=== PATIENT | female | born 1985 | race American Indian/Alaskan Native ===

== ENCOUNTER 2023-12-04 10:59 | Emergency (ER) | payer MEDICAID ==
[~2023-12-04] VITALS: Ht 149.9 cm; Wt 70.4 kg
[2023-12-04 12:25] VITALS: BP 122/74; PULSE 83; RESP 16; TEMP 98.1; O2SAT 99
[2023-12-04 12:56] LABS: Urine Bacteria None Seen /hpf (None Seen)
[2023-12-04 13:15] LABS: Urine Blood Negative /uL (Negative); Urine Clarity Clear (Clear); Urine Color Colorless (Yellow); Urine Protein, UAD Negative (Negative); Urine Specific Gravity 1.005 (1.001-1.035); Urine Urobilinogen Normal (Negative); Urine WBC <1 /hpf (0 - 5); Urine pH 6.5 (5.0-9.0)
[2023-12-04] MEDS ORDERED: PRED20TA2 PO (13:40)
[2023-12-04] MEDS ORDERED: AZIT-43 PO (13:40)
[2023-12-04] MEDS ORDERED: [UNRECOGNIZED DRUG - CODE] (13:40)
== END 2023-12-04 13:43 | disposition home or self-care (01) ==
LOC: ER 10:59
DX: R05.9 Cough, unspecified (principal); R09.81 Nasal congestion
CPT/HCPCS: 71046; 81001

== ENCOUNTER 2024-07-12 08:51 | Emergency (ER) | payer MEDICAID ==
[~2024-07-12] VITALS: Ht 149.9 cm; Wt 66.4 kg
[~2024-07-12 08:51] MED LIST: AZIT-43 PO; PRED20TA2 PO; [UNRECOGNIZED DRUG - CODE]
[2024-07-12 09:39] VITALS: BP 118/89; TEMP 97
--- NOTE | 2024-07-12 11:03 | ED.PDOC ---
History of Present Illness HPI Comments This is a 39-year-old year old female with a history of asthma comes in who has been sick for approximately 2 weeks. She has been using some [id number] meds and her nebulizer at home but symptoms have not improved she has had fevers chills coughing up green mucus soreness in her chest. And wheezing. Chief Complaint: Cough Time Seen by MD: 10:59 Primary Care Provider: [facility] Reviewed Notes: Nurses Notes, Medications, Allergies Allergies: Coded Allergies: NO KNOWN ALLERGIES (Unverified , 12/04/23) Home Meds Active Scripts Azithromycin (Azithromycin) 250 Mg Tab, 250 MG PO DAILY MDD 500 for 5 Days, #6 TAB 0 Refills 2 TABLETS ORALLY ON DAY ONE, THEN 1 TABLET ORALLY DAILY FOR 4 DAYS Prov:PRINCESS TAPIA 12/04/23 Azelastine HCl (Azelastine Hydrochloride) 0.15 % Spr, 0.15 % NA DAILY for 7 Days, #1 SPRAY Prov:PRINCESS TAPIA 12/04/23 Prednisone (Prednisone) 20 Mg Tab, 40 MG PO DAILY for 5 Days, #10 TAB Prov:PRINCESS TAPIA 12/04/23 Information Source: Patient Mode of Arrival: Ambulatory Past Medical History PAST MEDICAL HISTORY: Asthma 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 DUCT INSTALLER History Social History Smoker: Non-Smoker Alcohol: Denies ETOH Use Drugs: Denies Drug Use Constitutional: reports: chills, fatigue, fever, malaise EENTM: reports: nasal discharge, nose congestion Respiratory: reports: cough, shortness of breath, wheezing Physical Exam General Appearance: No Apparent Distress HEENT: PERRL/EOMI, Pharynx Normal, Sinuses, TMs Normal Neck: Non-Tender, Normal Inspection Respiratory: Expiration, Inspiration, Wheezing Cardiovascular: Regular Rate/Rhythm Breast Exam: Deferred Gastrointestinal: Normal Bowel Sounds, Soft Genitalia: Deferred Pelvic: Deferred Rectal: Deferred Extremities: Normal inspection, Normal range of motion Neurologic: Alert, No Sensory Deficits Cerebellar Function: Normal Reflexes: NOT DONE Skin: Dry, Warm Lymphatic: No Adenopathy Was a procedure done? Was a procedure done?: No Differential Dx Considerations may include: Acute asthma exacerbation versus pneumonia X-Ray, Labs, Meds, VS Vital Signs Date Time Temp Pulse Resp B/P (MAP) Pulse Ox O2 Delivery O2 Flow Rate FiO2 07/12/24 09:39 97.0 98 17 118/89 (99) 98 97.0 07/12/24 09:39 98 17 98 Room Air 07/12/24 09:07 17 98 Room Air* 0 21 07/12/24 09:07 97.0 98 17 118/89 (99) 98 Current Medications Medications (Trade) Dose Ordered Sig/Bettina Route Start Time Stop Time Status Last Admin Dexamethasone Sodium Phosphate (Decadron Injection) 10 mg ONCE ONCE IM 07/12/24 11:15 07/12/24 11:16 DC 07/12/24 11:09 Albuterol (Ventolin Medneb) 5 mg ONCE ONCE NEB 07/12/24 11:15 07/12/24 11:16 DC 07/12/24 11:45 X-Ray, Labs, Meds, VS Comment Patient seen and examined by me. Patient will be given a breathing treatment here a shot of Decadron and we will re-evaluate to see if her symptoms are better. Patient felt significantly better after the Decadron and a breathing treatment. I will send her home with some prednisone and antibiotics. Instructed to continue drinking lots of liquids and finish meds as directed. Supportive therapy with Tylenol and Motrin. Time of 1ST Reevaluation: 12:15 Reevaluation 1ST: Improved Patient Education/Counseling: Diagnosis, Treatment, Prognosis, Need For Follow Up Family Education/Counseling: No Family Present Departure 1 Departure Time of Disposition: 12:15 Impression: Primary Impression: Asthma attack Additional Impression: Upper respiratory infection Disposition: HOME / SELF CARE / HOMELESS Condition: Good Additional Instructions: Finish antibiotics as directed Start the oral prednisone tomorrow and take it until it is completely done Rest and drink lots of liquids Continue your inhaler as needed Follow-up with your regular doctor in 2 days e-Prescriptions Prednisone (Prednisone) 20 Mg Tab 40 MG PO DAILY@BREAKFAST for 4 Days, #8 MG Prov: EFRAIN JORGENSEN 07/12/24 Amoxicillin & Pot Clavulanate (AUGMENTIN TABLET) 875 Mg Tb 875 MG PO BID for 10 Days, #20 TAB Prov: EFRAIN JORGENSEN 07/12/24 Discharged With: Self Critical Care Note Critical Care Time?: No Stability Stability form required: No EFRAIN JORGENSEN Jul 12, 2024 11:03
[2024-07-12] MEDS: DexAMETHasone SOD PHOS 10MG/1ML VIAL INJ IM ONE (11:09)
[2024-07-12 11:45] VITALS: PULSE 85; RESP 18; O2SAT 96
[2024-07-12] MEDS: ALBUTEROL SULF 2.5 MG/0.5ML(0.5%) NEB SOLN NEB ONE (11:45)
[2024-07-12 11:51] VITALS: PULSE 86; RESP 16; O2SAT 100
[2024-07-12] MEDS ORDERED: AUG875T PO (12:17)
[2024-07-12] MEDS ORDERED: PRED20TA2 PO (12:18)
== END 2024-07-12 12:19 | disposition home or self-care (01) ==
LOC: ER 08:51
DX: J45.909 Unspecified asthma, uncomplicated (principal); J06.9 Acute upper respiratory infection, unspecified; Z79.899 Other long term (current) drug therapy; Z98.890 Other specified postprocedural states
CPT/HCPCS: 94640; 96372; 99283; J1100

== ENCOUNTER 2024-10-02 08:34 | Emergency (ER) | payer MEDICAID ==
[~2024-10-02] VITALS: Ht 149.9 cm; Wt 64.4 kg
[~2024-10-02 08:34] MED LIST changes: +AUG875T PO
[2024-10-02 09:05] VITALS: BP 106/62; PULSE 94; TEMP 98.5
--- NOTE | 2024-10-02 09:20 | ED.PDOC ---
SOB-HPI HPI Comments A 39 YEAR OLD FEMALE PRESENTS TO THE ED WITH COMPLAINT OF COUGH. PATIENT STATES SHE HAS BEEN EXPERIENCING A COUGH AND CONGESTION OFF AND ON FOR THE PAST 2 MONTHS. PATIENT REPORTS SHE CAME TO THIS ED FOR THIS COMPLAINT OVER 1 MONTH AGO WHERE SHE WAS PRESCRIBED STEROIDS AND AN ANTIBIOTIC, WHICH SHE STATES IMPROVED HER SYMPTOMS FOR A SHORT PERIOD OF TIME, BUT NOTES HIS SYMPTOMS RETURNED LATER. PATIENT STATES SHE HAS ALSO BEEN EXPERIENCING WHEEZING, BUT NOTES SHE HAS A HISTORY OF ASTHMA. PATIENT DENIES FEVER, CHILLS, SHORTNESS OF BREATH, CHEST PAIN, ABDOMINAL PAIN, NAUSEA, VOMITING, HEADACHE, OR OTHER COMPLAINTS. NO OTHER SYMPTOMS OR MODIFYING FACTORS AT THIS TIME. PATIENT IS ALERT, ORIENTED X 4, AND HAS STEADY GAIT. 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 Pertinent SHOE COBBLER History Family History Family History: Reviewed,noncontributory to illness Social History Smoker: Non-Smoker Alcohol: Denies ETOH Use Drugs: Denies Drug Use Lives In: Home Constitutional: denies: chills, diaphoresis, fatigue, fever, malaise, sweats, weakness, others EENTM: reports: nose congestion; denies: blurred vision, double vision, ear bleeding, ear discharge, ear drainage, ear pain, ear ringing, eye pain, eye redness, hearing loss, mouth pain, mouth swelling, nasal discharge, nose bleeding, nose pain, photophobia, tearing, throat pain, throat swelling, voice changes, others Respiratory: reports: cough, wheezing; denies: hemoptysis, orthopnea, SOB at rest, shortness of breath, SOB with excertion, stridor, others Cardiovascular: denies: chest pain, dizzy spells, diaphoresis, Dyspnea on exertion, edema, irregular heart beat, left arm pain, lightheadedness, palpitations, PND, syncope, others Gastrointestinal: denies: abdomen distended, abdominal pain, blood streaked bowels, constipated, diarrhea, dysphagia, difficulty swallowing, hematemesis, melena, nausea, poor appetite, poor fluid intake, rectal bleeding, rectal pain, vomiting, others Genitourinary: denies: abnormal vagina bleeding, burning, dyspareunia, dysuria, flank pain, frequency, hematuria, incontinence, pain, , vagina discharge, urgency, others Neurological: denies: dizziness, fainting, headache, left sided numbness, left sided weakness, numbness, paresthesia, pre-existing deficit, right sided numbness, right sided weakness, seizure, speech problems, tingling, tremors, weakness, others Musculoskeletal: denies: back pain, gout, joint pain, joint swelling, muscle pain, muscle stiffness, neck pain, others Integumetry: denies: bruises, change in color, change in hair/nails, dryness, laceration, lesions, lumps, rash, wounds, others Allergic/Immunocompromised: denies: Difficulty Healing, Frequent Infections, Hives, Itching, others Hematologic/Lymphatic: denies: anemia, blood clots, easy bleeding, easy bruising, swollen glands, others Endocrine: denies: excessive hunger, excessive sweating, excessive thirst, excessive urination, flushing, intolerance to cold, intolerance to heat, unexplained weight gain, unexplained weight loss, others Psychiatric: denies: anxiety, bipolar disorder, depression, hopeless, panic disorder, schizophrenia, sleepless, suicidal, others All Other Systems: Reviewed and Negative Physical Exam General Appearance: No Apparent Distress, Normal HEENT: Normal ENT Inspection, PERRL/EOMI, Pharynx Normal, TMs Normal Neck: Full Range of Motion, Non-Tender, Normal, Normal Inspection Respiratory: Chest Non-Tender, Expiration, Lungs Clear, No Accessory Muscle Use, No Respiratory Distress, Rhonchi, Wheezing Cardiovascular: No Edema, No JVD, No Murmur, No Gallop, Normal Peripheral Pulses, Regular Rate/Rhythm Breast Exam: Deferred Gastrointestinal: No Organomegaly, Non Tender, No Pulsatile Mass, Normal Bowel Sounds, Soft Genitalia: Deferred Pelvic: Deferred Rectal: Deferred Extremities: No calf tenderness, Normal capillary refill, Normal inspection, Normal range of motion, Non-tender, No pedal edema Musculoskeletal : Apperance: Normal Neurologic: Alert, loft worker II-XII nml as Tested, No Motor Deficits, Normal Affect, Normal Mood, No Sensory Deficits Cerebellar Function: Normal Reflexes: Normal Skin: Dry, Normal Color, Warm Peripheral Pulses: 2+ carotid (R), 2+ carotid (L) Lymphatic: No Adenopathy Was a procedure done? Was a procedure done?: No Differential Dx Differential Diagnosis: Asthma, Bronchitis, Pneumonia, Sinusitis, Allergic Rhinitis, Otitis Media, Pharyngitis, URI X-Ray, Labs, Meds, VS Vital Signs Date Time Temp Pulse Resp B/P (MAP) Pulse Ox O2 Delivery O2 Flow Rate FiO2 10/02/24 09:47 16 97 Room Air* 0 21 10/02/24 09:05 98.5 94 20 106/62 (77) 98 98.5 10/02/24 09:05 94 20 98 Room Air 10/02/24 08:52 20 98 Room Air* 0 21 10/02/24 08:52 98.5 94 20 106/62 (77) 98 EXAM: XY CHEST PORTABLE HISTORY: COUGH COMPARISON: Chest x-ray dated 12/04/2023. TECHNIQUE: Portable upright AP view of the chest was performed. FINDINGS: No pneumothorax, consolidative infiltrates, or pulmonary edema. There is mild central peribronchial thickening. The heart is not enlarged. There is slight upper thoracic levoscoliosis. IMPRESSION: Mild reactive airways disease. The lungs are otherwise clear. ATED BY: MARILEE FARRAR MD DICTATED DATE/TIME: 10/02/24917 SIGNED BY: MARILEE FARRAR MD SIGNED DATE/TIME: 10/02/24917 CC: X-Ray, Labs, Meds, VS Comment EXTERNAL MEDICAL RECORDS REVIEWED: [NONE] INDEPENDENT HISTORIANS: [NONE] SOCIAL DETERMINANTS OF HEALTH: [NONE] LABS ORDERED: NONE REVIEWED AND INTERPRETED RESULTS: NONE IMAGING ORDERED: XR CHEST TREATMENTS ORDERED: SOLU-MEDROL 125MG IM, DUONEB 3MG INHL PROCEDURES PERFORMED: NONE CRITICAL CARE TIME: NONE I HAVE DISCUSSED THE PATIENT WITH THE ATTENDING PHYSICIAN DR. NOEL AND HE AGREES WITH THE PATIENT'S PLAN OF CARE AND DISPOSITION. BASED ON HISTORY OF PRESENT ILLNESS, AND PHYSICAL EXAM, PATIENT WILL BE DISCHARGED HOME. SHARED DECISION MAKING: PATIENT INSTRUCTED TO FOLLOW UP WITH PRIMARY CARE HI OVIDER IN 1-2 DAYS FOR RE-EVALUATION OF SYMPTOMS. PATIENT VERBALIZES UNDERSTANDING TO RETURN TO ED FOR NEW OR WORSENING SYMPTOMS OR IF FOLLOW UP WITH PCP CANNOT BE OBTAINED. PATIENT FEELS COMFORTABLE GOING HOME AT THIS TIME. ALL QUESTIONS ADDRESSED AT TIME OF DISCHARGE. Images Reviewed?: Images reviewed and evaluated by me Time of 1ST Reevaluation: 10:00 Reevaluation 1ST: Improved Patient Education/Counseling: Diagnosis, Treatment, Need For Follow Up Family Education/Counseling: Diagnosis, Treatment, Need For Follow Up Medical Screening: No EMC Exist At This Time Departure 1 Departure Time of Disposition: 10:00 Impression: Primary Impression: Acute asthmatic bronchitis Disposition: 01 HOME / SELF CARE / HOMELESS Condition: Stable Additional Instructions: FOLLOW-UP WITH PCP IN 1 TO 2 DAYS. TAKE MEDICATIONS PRESCRIBED. RETURN TO ED FOR ANY NEW OR WORSENING SYMPTOMS. e-Prescriptions Azithromycin (ZITHROMAX TABLET) 250 Mg Tb 250 MG PO DAILY, #6 TAB Prov: ALANA VORA 10/02/24 Promethazine-Dm (Promethazine Dm 6.25-15 mg/5Ml) 1 Rachael Rachael 5 ML PO TID, #160 ML Prov: ALANA VORA 10/02/24 Methylprednisolone (Medrol Dosepak) 4 Mg Arnoldo 4 MG PO UD, #21 TAB UAD Prov: ALANA VORA 10/02/24 Discharged With: Self Critical Care Note Critical Care Time?: No Stability Stability form required: No Heart Score Heart Score: Heart Score Response (Comments) Value History N/A 0 EKG N/A 0 Age N/A 0 Risk Factors N/A 0 Troponin N/A 0 Total 0 I personally scribed for ALANA VORA ([email or web address]) on 10/02/24 at 09:20. Daniela ctronically submitted by Chucho Acuna ([email or web address]). I personally scribed for ALANA VORA ([email or web address]) on 10/02/24 at 09:27. Elect ronically submitted by Chucho Acuna ([email or web address]). I personally scribed for ALANA VORA ([email or web address]) on 10/02/24 at 09:31. Electro nically submitted by Chucho Acuna ([email or web address]). I personally scribed for ALANA VORA ([email or web address]) on 10/02/24 at 09:52. Marsha glasgow submitted by Chucho Acuna ([email or web address]). ALANA VORA Oct 02, 2024 09:20
[2024-10-02] MEDS: methylPREDNISolone SOD SUCC 125 MG/2 ML VL IM ONE (09:31)
[2024-10-02 09:47] VITALS: RESP 16; O2SAT 97
[2024-10-02] MEDS: IPRATROPIUM BROM 0.5 MG/2.5ML INH SOL NEB ONE (09:47)
[2024-10-02] MEDS: ALBUTEROL SULF 2.5 MG/0.5ML(0.5%) NEB SOLN NEB ONE (09:47)
[2024-10-02] MEDS ORDERED: AZIT-185 PO (09:52)
[2024-10-02] MEDS ORDERED: PROM1SOL4 PO (09:52)
[2024-10-02] MEDS ORDERED: METH4PAK PO (09:52)
== END 2024-10-02 09:56 | disposition home or self-care (01) ==
LOC: ER 08:34
DX: J45.909 Unspecified asthma, uncomplicated (principal); E07.9 Disorder of thyroid, unspecified; R05.9 Cough, unspecified; Z98.890 Other specified postprocedural states
CPT/HCPCS: 71045; 94640; 96372; 99283; J2919

== ENCOUNTER 2025-02-23 12:45 | Emergency (ER) | payer MEDICAID ==
[~2025-02-23] VITALS: Ht 149.9 cm; Wt 62.2 kg
[~2025-02-23 12:45] MED LIST changes: +AZIT-185 PO; +METH4PAK PO; +PROM1SOL4 PO
--- NOTE | 2025-02-23 13:20 | ED.PDOC ---
SOB-HPI HPI Comments 40 year old female with a past medical history of asthma, thyroid disease presents to the ED with a chief complaint of productive cough onset 3 days. Patient states she has been experiencing productive cough with green phlegm for the past 3 days, worsen last night. Patient was laying down, noticed worsening cough, was also experiencing shortness of breath, chest pain. Used breathing treatment and inhaler with minimal improvement of symptoms. Patient also notes LT leg pain, tried elevating with no relief of symptoms. No other symptoms or modifying factors present at this time. Hospitalizations: denies Denies fever chills night sweats regular cough Denies history of chronic steroid use or history of osteoporosis Denies any history of cancer Denies fevers chills night sweats nausea vomiting unintentional weight loss Denies IV drug use history of HIV/TB Denies abdominal "tearing" pain Denies syncope Denies urinary incontinence or urinary changes Denies numbness tingling of the groin or inner thigh Denies previous back procedure or surgery Chief Complaint: Cough Time Seen by MD: 13:00 Primary Care Provider: [facility] Reviewed notes: Medications, Allergies Information Source: Patient Mode of Arrival: Ambulatory Severity: Moderate Timing: Days Duration: Since onset Context: At Rest PE Risk Factors: None History of: Asthma Prehospital treatment: Breathing Tx Associated Signs and Symptoms: Cough, Chest Pain Quality: Pressure Radiation: No Radiation If cough with SOB: Productive, Green Past Medical History PAST MEDICAL HISTORY: Asthma, Thyroid 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 No nasal flaring no sternal retractions), No Accessory Muscle Use, Wheezing (mild expiratory, all 4 lobes) Cardiovascular: No Edema, No JVD, No Murmur, No Gallop, Normal Peripheral Pulses, Regular Rate/Rhythm Breast Exam: Deferred Gastrointestinal: No Organomegaly, Non Tender, No Pulsatile Mass, Normal Bowel Sounds, Soft Genitalia: Deferred Pelvic: Deferred Rectal: Deferred Extremities: No calf tenderness, Normal capillary refill, No pedal edema Musculoskeletal : Location: Left Extremity Location: Leg (positive LT straight leg raise test) Apperance: Normal Neurologic: Alert, trauma registrar II-XII nml as Tested, No Motor Deficits, Normal Affect, Normal Mood, No Sensory Deficits Cerebellar Function: Normal Reflexes: Normal Skin: Dry, Normal Color, Warm Lymphatic: No Adenopathy Was a procedure done? Was a procedure done?: No Differential Dx Differential Diagnosis: Asthma, Bronchitis, Pharyngitis, URI X-Ray, Labs, Meds, VS Vital Signs Date Time Temp Pulse Resp B/P (MAP) Pulse Ox O2 Delivery O2 Flow Rate FiO2 02/23/25 15:04 90 16 98 Room Air 02/23/25 15:04 98.7 90 16 117/85 (96) 96 98.7 02/23/25 13:51 22 97 Room Air* 0 21 02/23/25 13:08 99.0 109 17 146/96 (113) 97 99.0 Lab Test 02/23/25 13:39 02/23/25 13:19 Range/Units Urine Color Light-yellow Yellow Urine Clarity Clear Clear Urine pH 5.5 5.0-9.0 Urine Specific [place] 1.005 1.001-1.035 Urine Protein Negative Negative Urine Ketones Negative Negative Urine Blood Negative Negative /uL Urine Nitrite Negative Negative Urine Bilirubin Negative Negative Urine Urobilinogen Normal Negative mg/dL Urine Leukocyte Esterase Negative Negative /uL Urine RBC None seen 0 - 4 /hpf Urine Microscopic WBC < 1 0-5 /HPF Urine Squamous Epithelial Cells Few <5 /hpf Urine Bacteria None seen None Seen /hpf Urine Glucose Normal Normal mg/dL White Blood Count 5.4 4.4-10.8 10^3/uL Red Blood Count 4.00 4.0-5.20 10^6/uL Hemoglobin 12.4 12.2-16.2 g/dL Hematocrit 36.9 36.0-46.0 % Mean Corpuscular Volume 92.2 80.0-100.0 fL Mean Corpuscular Hemoglobin 31.0 28.0-32.0 pg Mean Corpuscular Hemoglobin Concent 33.6 32.0-36.0 g/dL Red Cell Distribution Width 14.0 11.8-14.3 % Platelet Count 255 140-450 10^3/uL Mean Platelet Volume 8.1 6.9-10.8 fL Neutrophils (%) (Auto) 38.3 37.0-80.0 % Lymphocytes (%) (Auto) 39.6 10.0-50.0 % Monocytes (%) (Auto) 7.6 0.0-12.0 % Eosinophils (%) (Auto) 13.6 H 0.0-7.0 % Basophils (%) (Auto) 0.9 0.0-2.0 % Neutrophils # (Auto) 2.1 1.6-8.6 10 ^3/uL Lymphocytes # (Auto) 2.1 0.4-5.4 10 ^3/uL Monocytes # (Auto) 0.4 0-1.3 10 ^3/uL Eosinophils # (Auto) 0.7 0-0.8 10 ^3/uL Basophils # (Auto) 0.1 0-0.2 10 ^3/uL Nucleated Red Blood Cells 0.1 % Sodium Level 143 136-145 mmol/L Potassium Level 3.6 3.5-5.1 mmol/L Chloride Level 107 98-107 mmol/L Carbon Dioxide Level 28 20-31 mmol/L Anion Gap 8 5-15 Blood Urea Nitrogen 7 L 9-23 mg/dL Creatinine 0.78 0.550-1.02 mg/dL Glomerular Filtration Rate Calc 98 >90 mL/min BUN/Creatinine Ratio 9.0 L 10.0-20.0 Serum Glucose 82 74-106 mg/dL Calcium Level 9.3 8.7-10.4 mg/dL Total Bilirubin 0.2 0.2-1.0 mg/dL Aspartate Amino Transferase (AST) 18 13-40 U/L Alanine Aminotransferase (ALT) 19 7-40 U/L Alkaline Phosphatase 61 46-116 U/L B-Type Natriuretic Peptide 67.79 0-100 pg/mL Total Protein 6.5 5.7-8.2 g/dL Albumin 4.4 3.2-4.8 g/dL Current Medications Medications (Trade) Dose Ordered Sig/Bettina Route Start Time Stop Time Status Last Admin Albuterol (Ventolin Medneb) 5 mg ONCE ONCE NEB 02/23/25 13:15 02/23/25 13:16 DC 02/23/25 13:51 Ipratropium [place] (Atrovent Medneb) 0.5 mg ONCE ONCE NEB 02/23/25 13:15 02/23/25 13:16 DC 02/23/25 13:50 Dexamethasone Sodium Phosphate (Decadron Injection) 16 mg ONCE ONCE IM 02/23/25 13:15 02/23/25 13:16 DC 02/23/25 14:51 Ketorolac Tromethamine (Toradol Injection) 30 mg ONCE ONCE IM 02/23/25 13:15 02/23/25 13:16 DC 02/23/25 14:51 [place] [id number] Ph: [phone] DIAGNOSTIC IMAGING Diagnostic Imaging Report : [id number] Signed PATIENT: DARLING CAVAZOS ACCT: [id number] UNIT: [id number] : 1985 LOC: ER ROOM / BED: / AGE / SEX: 40 / F ADM STATUS: REG ER SERVICE 1304 ORDERING PHYSICIAN: MIKKI SÁNCHEZ MAC DEVELOPER PROCEDURE(s): CXR2 - CHEST TWO VIEWS ROUTINE REASON: R/O PNA ORDER NUMBER(s): [id number], ACCESSION NUMBER(s): [id number] XY CHEST TWO VIEWS ROUTINE CLINICAL HISTORY: R/O PNA COMPARISON: XY CHEST TWO VIEWS ROUTINE on DOS: 12/04/23 TECHNIQUE: Frontal and lateral view of the chest was obtained FINDINGS: Lines and Tubes: None Lungs: No focal consolidation. Metallic densities overlying the chest wall which are most likely external to the patient and part of coiling Pleura: No effusion. No pneumothorax. Cardiomediastinal contours: Unremarkable Bones: No acute osseous abnormality. IMPRESSION: No acute cardiopulmonary disease. No Pneumonia. ATED BY: KIA MILLER DO DICTATED DATE/TIME: 02/23/251333 SIGNED BY: KIA MILLER DO SIGNED DATE/TIME: 02/23/251333 CC: X-Ray, Labs, Meds, VS Comment 40 year old female with a past medical history of asthma, thyroid disease presents to the ED with a chief complaint of productive cough onset 3 days. Patient arrives alert and oriented, ABC's intact, afebrile, vital signs stable, saturating well in room air Peripheral IV insertion+ labs were ordered. CBC was ordered to exclude anemia, blood loss, or infection. CMP was ordered to exclude electrolyte abnormalities, renal failure, dehydration, hyperglycemia and/or liver enzyme abnormalities. BNP was ordered to rule out myocardial infarction, or congestive heart failure. Urinalysis was ordered to rule out UTI or hematuria. Diagnostic imaging ordered by me and results interpreted by radiology : Chest 2 views: IMPRESSION: No acute cardiopulmonary disease. No Pneumonia. Patient presents with cough and expiratory wheezing Unclear cause of the asthma exacerbation. Differentials considered but not limited to: PNA, bronchiolitis, Foreign body airway obstruction, GERD. I also considered pulmonary embolism, CHF, COPD, however, this is less likely as the patients pulse oximetry is with normal limits and ambulating without difficulty. Chest x-ray was obtained, and interpreted independently by myself as not showing focal consolidations or lobar pneumonia. Discussed viral etiologies with the patient however viral testing was not indicated as it does not pattern changer and the patient was overall well- appearing. While in the ED, the patient was treated with Albuterol and Atrovent, Dexamethasone On reevaluation symptoms improved with treatment in the ED. Vital signs and exam reassuring. Lungs clear no wheezing. No labored breathing. No signs of respiratory distress. Advised to continue with the inhaler as needed. Strict return precautions were discussed. Follow up with PCP 2-3 days. Additional MDM Review of External, Non-ED records: External records reviewed. Discussion with independent historian (EMS, family) history obtained from the patient/parents (if applicable) at bedside Chronic conditions affecting care: asthma, thyroid Social determinants of health affecting care: None Consideration of admission (observation or admission): I considered escalation of care to admission for this patient, however given the reassuring workup, the patient is safe for outpatient management. Time of 1ST Reevaluation: 13:30 Reevaluation 1ST: Improved Patient Education/Counseling: Diagnosis, Treatment Family Education/Counseling: No Family Present SEPSIS Sepsis Screen Physician Orders Chest Two Views Routine (02/23/25 13:04) Vital Signs Date Time Temp Pulse Resp B/P (MAP) Pulse Ox O2 Delivery O2 Flow Rate FiO2 02/23/25 15:04 90 16 98 Room Air 02/23/25 15:04 98.7 90 16 117/85 (96) 96 98.7 02/23/25 13:51 22 97 Room Air* 0 21 02/23/25 13:08 99.0 109 17 146/96 (113) 97 99.0 Laboratory Tests Test 02/23/25 13:19 White Blood Count 5.4 10^3/uL (4.4-10.8) Departure 1 Departure Time of Disposition: 14:39 Impression: Primary Impression: Asthma attack Qualified Codes: J45.21 - Mild intermittent asthma with (acute) exacerbation Additional Impression: Lumbar radiculopathy Disposition: HOME / SELF CARE / HOMELESS Condition: Fair e-Prescriptions Ibuprofen Micronized (Ibuprofen) 600 Mg Tab 600 MG PO TIDWMEALS for 10 Days, #30 TAB 0 Refills Prov: MIKKI SÁNCHEZ MAC DEVELOPER 02/23/25 Discharged With: Self Critical Care Note Critical Care Time?: No Stability Stability form required: No Heart Score Heart Score: Heart Score Response (Comments) Value History N/A 0 EKG N/A 0 Age N/A 0 Risk Factors N/A 0 Troponin N/A 0 Total 0 I personally scribed for MIKKI SÁNCHEZ MAC DEVELOPER ([email or web address]) on 02/23/25 at 13:20. Electronically submitted by Nila Lafleur ([email or web address]). I personally scribed for MIKKI SÁNCHEZ MAC DEVELOPER ([place]AH[place]) on 02/23/25 at 15:36. Electronically submitted by Nila Lafleur ([email or web address]). I personally scribed for MIKKI SÁNCHEZ MAC DEVELOPER (LEAHOMA) on 02/23/25 at 15:37. Electronically submitted by Nila Lafleur ([email or web address]). MIKKI SÁNCHEZ MAC DEVELOPER Feb 23, 2025 13:20
[2025-02-23 13:35] LABS: Hematocrit 36.9 % (36.0-46.0); Hemoglobin 12.4 g/dL (12.2-16.2); Mean Corpuscular Hemoglobin 31.0 pg (28.0-32.0); Mean Corpuscular Volume 92.2 fL (80.0-100.0); Nucleated Red Blood Cells % 0.1 %
--- NOTE | 2025-02-23 13:36 | DVH ---
XY CHEST TWO VIEWS ROUTINE CLINICAL HISTORY: R/O PNA COMPARISON: XY CHEST TWO VIEWS ROUTINE on DOS: 12/04/23 TECHNIQUE: Frontal and lateral view of the chest was obtained FINDINGS: Lines and Tubes: None Lungs: No focal consolidation. Metallic densities overlying the chest wall which are most likely exte rnal to the patient and part of coiling Pleura: No effusion. No pneumothorax. Cardiomediastinal contours: Unremarkable Bones: No acute osseous abnormality. IMPRESSION: No acute cardiopulmonary disease. No Pneumonia.
[2025-02-23] MEDS: IPRATROPIUM BROM 0.5 MG/2.5ML INH SOL NEB ONE (13:50)
[2025-02-23 13:51] LABS: Alanine Aminotransferase 19 U/L (7-40); Albumin 4.4 g/dL (3.2-4.8); Alkaline Phosphatase 61 U/L (46-116); Anion Gap 8 (5-15); BUN/Creatinine Ratio 9.0 (10.0-20.0); Calcium 9.3 mg/dL (8.7-10.4); Carbon Dioxide 28 mmol/L (20-31); Chloride 107 mmol/L (98-107); Glucose 82 mg/dL (74-106); Potassium 3.6 mmol/L (3.5-5.1); Sodium 143 mmol/L (136-145); Total Protein 6.5 g/dL (5.7-8.2)
[2025-02-23] MEDS: ALBUTEROL SULF 2.5 MG/0.5ML(0.5%) NEB SOLN NEB ONE (13:51)
[2025-02-23 13:52] LABS: Bilirubin, Total 0.2 mg/dL (0.2-1.0); Blood Urea Nitrogen 7 mg/dL (9-23)
[2025-02-23 14:00] LABS: Urine Protein, UAD Negative (Negative)
[2025-02-23] MEDS ORDERED: IBUP1TAB5 PO (14:40)
[2025-02-23] MEDS: KETOROLAC TROMETH 30 MG/ML 1ML VIAL IM ONE (14:51)
[2025-02-23 15:04] VITALS: BP 117/85; PULSE 90; RESP 16; TEMP 98.7; O2SAT 98
== END 2025-02-23 15:06 | disposition home or self-care (01) ==
LOC: ER 12:45
DX: J45.909 Unspecified asthma, uncomplicated (principal); M54.16 Radiculopathy, lumbar region; Z98.890 Other specified postprocedural states
CPT/HCPCS: 36415; 71046; 80053; 81001; 83880; 85025; 94640; 96372; 99284; J1100; J1885

== ENCOUNTER 2025-04-24 17:41 | Emergency (ER) | payer MEDICAID ==
[~2025-04-24] VITALS: Ht 149.9 cm; Wt 63.3 kg
[~2025-04-24 17:41] MED LIST changes: +IBUP1TAB5 PO
--- NOTE | 2025-04-24 18:42 | ED.PDOC ---
Back pain HPI HPI Comments 40-YEAR-OLD FEMALE PRESENTS IN THE ED WITH CC OF LEFT FOOT PAIN X 5 DAYS. PATIENT DOES NOT RECALL ANY KNOWN INJURY. PAIN IS SHARP PRESSURE TYPE 6/10 ON PAIN SCALE NONRADIATING TOP OF FOOT INTO ANKLE. HAS TRIED [id number] MEDICATIONS WITH LITTLE RELIEF. DENIES WEAKNESS NUMBNESS OR KNOWN INJURY. Chief Complaint: Lower Extremity Time Seen by MD: 18:18 Primary Care Provider: [facility] Reviewed Notes: Nurses Notes, Medications, Allergies Allergies: Coded Allergies: NO KNOWN ALLERGIES (Unverified , 12/04/23) Home Meds Active Scripts Tizanidine Hydrochloride (Tizanidine Hcl) 4 Mg Tab, 4 MG PO BID for 7 Days, #14 TAB Prov:CRISTÓBAL LIGHT PLASTIC TOP ASSEMBLER 04/24/25 Methylprednisolone (Medrol Dosepak) 4 Mg Arnoldo, 4 MG PO UD for 6 Days, #21 TAB UAD Prov:CRISTÓBAL LIGHT PLASTIC TOP ASSEMBLER 04/24/25 Ibuprofen Micronized (Ibuprofen) 600 Mg Tab, 600 MG PO TIDWMEALS for 10 Days, #30 TAB 0 Refills Prov:MIKKI SÁNCHEZ HAND CELL TUBER 02/23/25 Azithromycin (ZITHROMAX TABLET) 250 Mg Tb, 250 MG PO DAILY, #6 TAB Prov:ALANA VORA 10/02/24 Promethazine-Dm (Promethazine Dm 6.25-15 mg/5Ml) 1 Rachael Rachael, 5 ML PO TID, #160 ML Prov:ALANA VORA PA 10/02/24 Methylprednisolone (Medrol Dosepak) 4 Mg Arnoldo, 4 MG PO UD, #21 TAB UAD Prov:ALANA VORA 10/02/24 Prednisone (Prednisone) 20 Mg Tab, 40 MG PO DAILY@BREAKFAST for 4 Days, #8 MG Prov:EFRAIN JORGENSEN PLASTIC TOP ASSEMBLER 07/12/24 Amoxicillin & Pot Clavulanate (AUGMENTIN TABLET) 875 Mg Tb, 875 MG PO BID for 10 Days, #20 TAB Prov:EFRAIN JORGENSEN PLASTIC TOP ASSEMBLER 07/12/24 Azithromycin (Azithromycin) 250 Mg Tab, 250 MG PO DAILY MDD 500 for 5 Days, #6 T AB 0 Refills 2 TABLETS ORALLY ON DAY ONE, THEN 1 TABLET ORALLY DAILY FOR 4 DAYS Prov:PRINCESS TAPIA PLASTIC TOP ASSEMBLER 12/04/23 Azelastine HCl (Azelastine Hydrochloride) 0.15 % Spr, 0.15 % NA DAILY for 7 Days, #1 SPRAY Prov:PRINCESS TAPIA 12/04/23 Prednisone (Prednisone) 20 Mg Tab, 40 MG PO DAILY for 5 Days, #10 TAB Prov:PRINCESS TAPIA 12/04/23 Information Source: Patient Mode of Arrival: Ambulatory Past Medical History PAST MEDICAL HISTORY: Asthma, Thyroid Surgical History: SENIOR ADMINISTRATIVE ASSISTANT History: No Pertinent SENIOR ADMINISTRATIVE ASSISTANT History Family History Family History: Reviewed,noncontributory to illness Social History Smoker: Non-Smoker Alcohol: Denies ETOH Use Drugs: Denies Drug Use Lives In: Home All Other Systems: Reviewed and Negative (SEE HPI) Physical Exam General Appearance: No Apparent Distress, Normal HEENT: Pharynx Normal Neck: Full Range of Motion, Non-Tender Respiratory: Lungs Clear, No Respiratory Distress, Normal Breath Sounds Cardiovascular: No Murmur, Normal Peripheral Pulses, Regular Rate/Rhythm Breast Exam: Deferred Gastrointestinal: Non Tender, Soft Genitalia: Deferred Pelvic: Deferred Rectal: Deferred Extremities: No calf tenderness, Normal capillary refill, Normal range of motion, No pedal edema Musculoskeletal : Location: Left Extremity Location: Foot (Tenderness palpated Robitussin aspect and plantar aspect strength sensory motion intact cap refill less than 3 seconds) Apperance: Normal Neurologic: Alert, No Motor Deficits, Normal Affect, Normal Mood, No Sensory Deficits Cerebellar Function: Normal Reflexes: Normal, L Ankle Skin: Dry, Normal Color, Warm Lymphatic: No Adenopathy Was a procedure done? Was a procedure done?: No Back Pain Differential Dx Differential Diagnosis: Fracture, Musculoskeletal Pain, Urinary Obstruction X-Ray, Labs, Meds, VS Vital Signs Date Time Temp Pulse Resp B/P (MAP) Pulse Ox O2 Delivery O2 Flow Rate FiO2 04/24/25 19:31 104 19 97 Room Air 04/24/25 19:31 97.9 104 19 140/97 (111) 97 97.9 04/24/25 17:42 99.0 105 18 126/60 95 99.0 Current Medications Medications (Trade) Dose Ordered Sig/Bettina Route Start Time Stop Time Status Last Admin Ketorolac Tromethamine (Toradol Injection) 60 mg ONCE ONCE IM 04/24/25 18:30 04/24/25 19:17 DC 04/24/25 19:16 Acetaminophen/ Hydrocodone Bitart ([place] 5/325MG Tab) 1 tab ONCE ONCE PO 04/24/25 19:15 04/24/25 19:17 DC 04/24/25 19:30 Ibuprofen (Motrin Tablet) 600 mg ONCE ONCE PO 04/24/25 19:15 04/24/25 19:17 DC 04/24/25 19:30 X-Ray, Labs, Meds, VS Comment Left foot x-ray shows no acute fractures, dislocations or osseous lesion. Patient given [place] and ibuprofen for the pain, reports improvement request discharge at this time. Medrol Dosepak and muscle relaxer, advised take medications as prescribed side effects discussed. Follow up with the PCP in 2-3 days if no improvement consider further imaging such as MRI. Return precautions patient indicates understanding agrees with discharge plan of care. Time of 1ST Reevaluation: 18:35 Reevaluation 1ST: Unchanged Time of 2ND Reevaluation: 19:35 Reevaluation 2ND: Improved Patient Education/Counseling: Diagnosis, Treatment, Prognosis, Need For Follow Up Family Education/Counseling: No Family Present SEPSIS Sepsis Screen Date sepsis recognized/suspect: Apr 24, 2025 Time Sepsis recognized/suspect: 1743 Recent Procedure: No On Antibiotic Therapy: No Respiratory Rate >20: No Heart Rate >90: No Temp<36 C (96.8 F) or >38.3 C: No SBP <90 or MAP <65 mmHG: No New Acute Mental Status Change: No Is the patient on CPAP, BIPAP,: No Physician Orders L Foot 3 View Xray (04/24/25 18:23) Vital Signs Date Time Temp Pulse Resp B/P (MAP) Pulse Ox O2 Delivery O2 Flow Rate FiO2 04/24/25 19:31 104 19 97 Room Air 04/24/25 19:31 97.9 104 19 140/97 (111) 97 97.9 04/24/25 17:42 99.0 105 18 126/60 95 99.0 Medications Medications Dose Ordered Sig/Bettina Route Start Time Stop Time Status Last Admin Dose Admin Acetaminophen/ Hydrocodone Bitart 1 tab ONCE ONCE PO 04/24/25 19:15 04/24/25 19:17 DC 04/24/25 19:30 Ibuprofen 600 mg ONCE ONCE PO 04/24/25 19:15 04/24/25 19:17 DC 04/24/25 19:30 Ketorolac Tromethamine 60 mg ONCE ONCE IM 04/24/25 18:30 04/24/25 19:17 DC 04/24/25 19:16 Departure 1 Departure Time of Disposition: 19:35 Impression: Primary Impression: Fasciitis Disposition: 01 HOME / SELF CARE / HOMELESS Condition: Stable e-Prescriptions Tizanidine Hydrochloride (Tizanidine Hcl) 4 Mg Tab 4 MG PO BID for 7 Days, #14 TAB Prov: CRISTÓBAL LIGHT 04/24/25 Methylprednisolone (Medrol Dosepak) 4 Mg Arnoldo 4 MG PO UD for 6 Days, #21 TAB UAD Prov: CRISTÓBAL LIGHT 04/24/25 Discharged With: Self Critical Care Note Critical Care Time?: No Stability Stability form required: CRISTÓBAL Harry Apr 24, 2025 18:42
[2025-04-24] MEDS: KETOROLAC TROMETH 60MG/2ML VIAL IM ONE (19:16)
--- NOTE | 2025-04-24 19:16 | DVH ---
CLINICAL INDICATION: pain and swelling TECHNIQUE: XY L FOOT 3 VIEW XRAY Comparison: None FINDINGS: No evidence of acute fracture or dislocation. A pin is noted at the 1st metatarsal head. Joint spaces are normal. Soft tissues appear unremarkable. No evidence of ankle joint effusion. Small enthesophyt e noted at Achilles tendon insertion. IMPRESSION: No acute abnormality demonstrated.
[2025-04-24] MEDS: HYDROcodone-ACET 5/325MG TAB PO ONE (19:30)
[2025-04-24] MEDS: IBUPROFEN 600 MG TAB PO ONE (19:30)
[2025-04-24] MEDS ORDERED: TIZA-142 PO (19:30)
[2025-04-24] MEDS ORDERED: METH4PAK PO (19:30)
[2025-04-24 19:31] VITALS: BP 140/97; PULSE 104; RESP 19; TEMP 97.9; O2SAT 97
== END 2025-04-24 19:46 | disposition home or self-care (01) ==
LOC: ER 17:41
DX: M72.9 Fibroblastic disorder, unspecified (principal); J45.909 Unspecified asthma, uncomplicated; Z79.899 Other long term (current) drug therapy; Z98.890 Other specified postprocedural states; Z79.52 Long term (current) use of systemic steroids
CPT/HCPCS: 73630; 96372; 99283; J1885

== ENCOUNTER 2025-05-29 22:01 | Inpatient (IN) | payer MEDICAID ==
[~2025-05-29] VITALS: Ht 149.9 cm; Wt 62.1 kg
--- NOTE | 2025-05-29 23:23 | ED.PDOC ---
History of Present Illness HPI Comments 40 y/o F, with a history of asthma and thyroid disease, presents with c/c of chest pain, shortness of breath, and white phlegm production. Endorsement of 3- 4x days with constant symptoms following initial, unprovoked and atraumatic onset. No reported modifiers. No stated recent sick contact, travel, stressors, strenuous activities, or pertinent cardiac history. Denial of any nausea, vomiting, palpitations, fever, cough, or further associated symptoms. Chief Complaint: Chest Pain Time Seen by MD: 23:10 Primary Care Provider: [facility] Reviewed Notes: Nurses Notes, Medications, Allergies Allergies: Coded Allergies: NO KNOWN ALLERGIES (Unverified , 12/04/23) Home Meds Active Scripts Ibuprofen Micronized (Ibuprofen) 600 Mg Tab, 600 MG PO TIDWMEALS for 10 Days, #30 TAB 0 Refills Prov:MIKKI SÁNCHEZ LEATHER SHAVER 02/23/25 Azithromycin (ZITHROMAX TABLET) 250 Mg Tb, 250 MG PO DAILY, #6 TAB Prov:ALANA VORA 10/02/24 Promethazine-Dm (Promethazine Dm 6.25-15 mg/5Ml) 1 Rachael Rachael, 5 ML PO TID, #160 ML Prov:ALANA VORA 10/02/24 Methylprednisolone (Medrol Dosepak) 4 Mg Arnoldo, 4 MG PO UD, #21 TAB UAD Prov:ALANA VORA 10/02/24 Prednisone (Prednisone) 20 Mg Tab, 40 MG PO DAILY@BREAKFAST for 4 Days, #8 MG Prov:EFRAIN JORGENSEN [facility] 07/12/24 Amoxicillin & Pot Clavulanate (AUGMENTIN TABLET) 875 Mg Tb, 875 MG PO BID for 10 Days, #20 TAB Prov:EFRAIN JORGENSEN [facility] 07/12/24 Azithromycin (Azithromycin) 250 Mg Tab, 250 MG PO DAILY MDD 500 for 5 Days, #6 TAB 0 Refills 2 TABLETS ORALLY ON DAY ONE, THEN 1 TABLET ORALLY DAILY FOR 4 DAYS Prov:PRINCESS TAPIA [facility] 12/04/23 Azelastine HCl (Azelastine Hydrochloride) 0.15 % Spr, 0.15 % NA DAILY for 7 Days, #1 SPRAY Prov:PRINCESS TAPIA [facility] 12/04/23 Prednisone (Prednisone) 20 Mg Tab, 40 MG PO DAILY for 5 Days, #10 TAB Prov:PRINCESS TAPIA SCHEME TECHNICIAN 12/04/23 Information Source: Patient Mode of Arrival: Ambulatory Severity: Moderate Timing: Days Duration: Since onset Prehospital treatment: None Past Medical History PAST MEDICAL HISTORY: Asthma, Thyroid Surgical History: REGIONAL SALES LEADER History: No Pertinent REGIONAL SALES LEADER History Family History Family History: Reviewed,noncontributory to illness Social History Smoker: Non-Smoker Alcohol: Denies ETOH Use Drugs: Denies Drug Use Lives In: Home All Other Systems: Reviewed and Negative (Comprehensive systems review obtained and negative except for what is stated in the HPI.) Physical Exam General Appearance: Moderate Distress HEENT: Normal ENT Inspection, Pharynx Normal, TMs Normal Neck: Full Range of Motion, Non-Tender, Normal, Normal Inspection Respiratory: Other (Coarse breath sounds) Cardiovascular: No Edema, No JVD, No Murmur, No Gallop, Normal Peripheral Pulses, Regular Rate/Rhythm Breast Exam: Deferred Gastrointestinal: No Organomegaly, Non Tender, No Pulsatile Mass, Normal Bowel Sounds, Soft Genitalia: Deferred Pelvic: Deferred Rectal: Deferred Extremities: No calf tenderness, Normal capillary refill, Normal inspection, Normal range of motion, Non-tender, No pedal edema Musculoskeletal : Apperance: Normal Neurologic: Alert, stock driver II-XII nml as Tested, No Motor Deficits, Normal Affect, Normal Mood, No Sensory Deficits Cerebellar Function: NOT DONE Reflexes: NOT DONE Skin: Dry, Normal Color, Warm Peripheral Pulses: 3+ Radial (R), 3+ Radial (L) Lymphatic: No Adenopathy Was a procedure done? Was a procedure done?: No EKG EKG : Pulse Rate (adult): 89 [place]: Normal Cardiac Rhythm: NSR Block: None Hypertrophy: None ST: Normal Differential Dx Considerations may include: TX, PE, ACS, URI, PNA, angina, anxiety, gastritis, among others X-Ray, Labs, Meds, VS Vital Signs Date Time Temp Pulse Resp B/P (MAP) Pulse Ox O2 Delivery O2 Flow Rate FiO2 05/29/25 23:36 98.6 85 18 115/65 (82) 98 98.6 05/29/25 23:36 85 18 05/29/25 23:23 89 05/29/25 22:12 89 05/29/25 22:02 98.5 87 18 122/69 96 98.5 Lab Test 05/29/25 23:30 05/29/25 22:53 05/29/25 22:10 Range/Units Urine Color Light-yellow Yellow Urine Clarity Clear Clear Urine pH 6.5 5.0-9.0 Urine Specific [place] 1.004 1.001-1.035 Urine Protein Negative Negative Urine Ketones Negative Negative Urine Blood Negative Negative /uL Urine Nitrite Negative Negative Urine Bilirubin Negative Negative Urine Urobilinogen Normal Negative mg/dL Urine Leukocyte Esterase Negative Negative /uL Urine RBC <1 0 - 4 /hpf Urine Microscopic WBC < 1 0-5 /HPF Urine Squamous Epithelial Cells Few <5 /hpf Urine Bacteria None seen None Seen /hpf Urine Glucose Normal Normal mg/dL Troponin I High Sensitivity < 3 L 3 L </=34 ng/L White Blood Count 9.1 4.4-10.8 10^3/uL Red Blood Count 3.67 L 4.0-5.20 10^6/uL Hemoglobin 11.3 L 12.2-16.2 g/dL Hematocrit 33.7 L 36.0-46.0 % Mean Corpuscular Volume 91.8 80.0-100.0 fL Mean Corpuscular Hemoglobin 30.8 28.0-32.0 pg Mean Corpuscular Hemoglobin Concent 33.6 32.0-36.0 g/dL Red Cell Distribution Width 12.6 11.8-14.3 % Platelet Count 322 140-450 10^3/uL Mean Platelet Volume 8.0 6.9-10.8 fL Neutrophils (%) (Auto) 51.6 37.0-80.0 % Lymphocytes (%) (Auto) 38.7 10.0-50.0 % Monocytes (%) (Auto) 7.1 0.0-12.0 % Eosinophils (%) (Auto) 2.0 0.0-7.0 % Basophils (%) (Auto) 0.6 0.0-2.0 % Neutrophils # (Auto) 4.7 1.6-8.6 10 ^3/uL Lymphocytes # (Auto) 3.5 0.4-5.4 10 ^3/uL Monocytes # (Auto) 0.6 0-1.3 10 ^3/uL Eosinophils # (Auto) 0.2 0-0.8 10 ^3/uL Basophils # (Auto) 0.1 0-0.2 10 ^3/uL Nucleated Red Blood Cells 0.1 % Sodium Level 141 136-145 mmol/L Potassium Level 3.5 3.5-5.1 mmol/L Chloride Level 103 98-107 mmol/L Carbon Dioxide Level 30 20-31 mmol/L Anion Gap 8 5-15 Blood Urea Nitrogen < 5 L 9-23 mg/dL Creatinine 0.61 0.550-1.02 mg/dL Glomerular Filtration Rate Calc 115 >90 mL/min BUN/Creatinine Ratio 8.2 L 10.0-20.0 Serum Glucose 92 74-106 mg/dL Calcium Level 8.7 8.7-10.4 mg/dL Current Medications Medications (Trade) Dose Ordered Sig/Bettina Route Start Time Stop Time Status Last Admin Ceftriaxone Sodium 50 ml @ 100 mls/hr ONCE ONCE IV 05/29/25 23:15 05/29/25 23:44 DC 05/30/25 00:10 Azithromycin 250 ml @ 125 mls/hr ONCE ONCE IV 05/29/25 23:15 05/30/25 01:14 DC 05/30/25 01:22 Methylprednisolone Sodium Succinate (Solu Medrol) 125 mg ONCE ONCE IV 05/29/25 23:15 05/29/25 23:16 DC 05/30/25 00:10 [place] [address] Ph: [phone] DIAGNOSTIC IMAGING Diagnostic Imaging Report : [id number] Signed PATIENT: DARLING CAVAZOS ACCT: [id number] UNIT: [id number] : 1985 LOC: ER ROOM / BED: / AGE / SEX: 40 / F ADM STATUS: REG ER SERVICE 2311 ORDERING PHYSICIAN: CLAUDIA BHANDARI MD PROCEDURE(s): CXRP - CHEST PORTABLE REASON: sob ORDER NUMBER(s): [id number], ACCESSION NUMBER(s): [id number] CHEST RADIOGRAPH Indication: sob Technique: 1 view Comparison: XY CHEST PORTABLE on DOS: 10/02/24 FINDINGS: Lines and Tubes: None Lungs/Pleura: No focal consolidation, pleural effusion or pneumothorax. Cardiomediastinum: Unremarkable. Other: No acute osseous abnormality. IMPRESSION: 1. No acute cardiopulmonary abnormality. ATED BY: DENISHA YI MD DICTATED DATE/TIME: 05/30/2539 SIGNED BY: DENISHA YI MD SIGNED DATE/TIME: 05/30/2539 CC: Patient alert. Complaining of cough chest pain. Vitals stable. Answering questions. Cardiac marker within normal limits. EKG reviewed does not show any acute changes. Was given steroid. Was given Rocephin. Explained to the patient. Continue monitoring. Time of 1ST Reevaluation: 23:40 Reevaluation 1ST: Unchanged Patient Education/Counseling: Diagnosis, Treatment Family Education/Counseling: No Family Present SEPSIS Sepsis Screen Date sepsis recognized/suspect: May 29, 2025 Time Sepsis recognized/suspect: 2204 Recent Procedure: No On Antibiotic Therapy: No Respiratory Rate >20: No Heart Rate >90: No Temp<36 C (96.8 F) or >38.3 C: No SBP <90 or MAP <65 mmHG: No New Acute Mental Status Change: No Is the patient on CPAP, BIPAP,: No Physician Orders Electrocardigram (05/29/25 22:49) Electrocardigram (05/29/25 23:49) Electrocardigram (05/30/25 01:49) Chest Portable (05/29/25 23:11) Blood Culture (05/29/25 23:34) Vital Signs Date Time Temp Pulse Resp B/P (MAP) Pulse Ox O2 Delivery O2 Flow Rate FiO2 05/29/25 23:36 98.6 85 18 115/65 (82) 98 98.6 05/29/25 23:36 85 18 05/29/25 23:23 89 05/29/25 22:12 89 05/29/25 22:02 98.5 87 18 122/69 96 98.5 Laboratory Tests Test 05/29/25 22:10 White Blood Count 9.1 10^3/uL (4.4-10.8) Medications Medications Dose Ordered Sig/Bettina Route Start Time Stop Time Status Last Admin Dose Admin Azithromycin 250 ml @ 125 mls/hr ONCE ONCE IV 05/29/25 23:15 05/30/25 01:14 DC 05/30/25 01:22 Ceftriaxone Sodium 50 ml @ 100 mls/hr ONCE ONCE IV 05/29/25 23:15 05/29/25 23:44 DC 05/30/25 00:10 Methylprednisolone Sodium Succinate 125 mg ONCE ONCE IV 05/29/25 23:15 05/29/25 23:16 DC 05/30/25 00:10 Departure 1 Departure Time of Disposition: 00:53 Impression: Primary Impression: Chest pain of unknown etiology Additional Impression: Pneumonitis Disposition: ADMITTED INPATIENT Admit to: Med Surg Condition: Guarded Critical Care Note Critical Care Time?: Yes (90 min-critical care time only) Stability Stability form required: No Heart Score Heart Score: Heart Score Response (Comments) Value History Slightly Suspicious 0 EKG Normal 0 Age <45 0 Risk Factors No known risk factors 0 Troponin Normal limit 0 Total 0 I personally scribed for CLAUDIA BHANDARI MD ([email or web address]) on 05/29/25 at 23:23. Electronically submitted by Aquiles Whelan ([email or web address]). I personally scribed for CLAUDIA BHANDARI MD ([email or web address]) on 05/30/25 at 02:12. Electronically submitted by Aquiles Whelan ([email or web address]). CLAUDIA BHANDARI MD May 29, 2025 23:23
[2025-05-29 23:39] LABS: Hematocrit 33.7 % (36.0-46.0); Hemoglobin 11.3 g/dL (12.2-16.2); Mean Corpuscular Hemoglobin 30.8 pg (28.0-32.0); Mean Corpuscular Volume 91.8 fL (80.0-100.0); Nucleated Red Blood Cells % 0.1 %
[2025-05-29 23:55] LABS: Chloride 103 mmol/L (98-107); Potassium 3.5 mmol/L (3.5-5.1); Sodium 141 mmol/L (136-145)
[2025-05-29 23:56] LABS: Anion Gap 8 (5-15); Carbon Dioxide 30 mmol/L (20-31)
[2025-05-29 23:59] LABS: Calcium 8.7 mg/dL (8.7-10.4)
[2025-05-30 00:01] LABS: Glucose 92 mg/dL (74-106)
[2025-05-30] MEDS: methylPREDNISolone SOD SUCC 125 MG/2 ML VL IV ONE (00:10)
[2025-05-30 00:23] LABS: BUN/Creatinine Ratio 8.2 (10.0-20.0); Blood Urea Nitrogen < 5 mg/dL (9-23)
--- NOTE | 2025-05-30 00:42 | DVH ---
CHEST RADIOGRAPH Indication: sob Technique: 1 view Comparison: XY CHEST PORTABLE on DOS: 10/02/24 FINDINGS: Lines and Tubes: None Lungs/Pleura: No focal consolidation, pleural effusion or pneumothorax. Cardiomediastinum: Unremarkable. Other: No acute osseous abnormality. IMPRESSION: 1. No acute cardiopulmonary abnormality.
[2025-05-30] MEDS: AZITHROMYCIN 500MG/ 250ML 250 ML IV ONE (00:53)
[2025-05-30 01:00] LABS: Urine Protein, UAD Negative (Negative)
[2025-05-30] MEDS ORDERED: DOCUSATE SOD 100 MG CAP PO PRN (05:00)
[2025-05-30] MEDS ORDERED: ACETAMINOPHEN 325 MG TAB PO PRN (05:00)
[2025-05-30] MEDS ORDERED: ONDANSETRON HCL 4 MG/2 ML VIAL IV PRN (05:00)
[2025-05-30] MEDS ORDERED: HYDROcodone-ACET 5/325MG TAB PO PRN (05:00)
--- NOTE | 2025-05-30 05:35 | DVHHP2 ---
History of Present Illness Reason for Visit: Chest pain of unknown etiology History of Present Illness The patient is a 40-year-old female with past medical history of asthma and thyroid disease who presented to [facility] ED with complaint of chest pain for the past 3 days. Patient reports she has been experiencing chest pain associated with shortness of breaths, productive cough with white phlegm times, getting worse that prompted this visit. Patient was seen and evaluated in the ED, laboratory data shows WBC 9.1, hemoglobin 11.3, hematocrit 33.7, platelets 322, sodium 141, potassium 3.5, BUN < 5, creatinine 0.61, GFR 115, glucose 92, calcium 8.7, troponin < 3, blood pressure 115/65, heart rate 82, temperature 98.6 F, O2 saturation 98% on room air. Chest x-ray show no acute cardiopulmonary abnormality. On my assessment, patient denied chest pain at this moment, palpitation, no headache, no dizziness, no shortness of breath, no nausea, vomiting, fever, no chills. Patient was admitted for further evaluation and medical management. Past Medical History Asthma, Thyroid Past Surgical History Family History Reviewed, noncontributory to the management of this case. Past Social History The patient lives at home, denies smoking, alcohol or illicit drugs abuse. Review of Systems Constitutional: No: Fever, Chills, Sweats, Weakness, Malaise, Other Eyes: No: Pain, Vision change, Conjunctivae inflammation, Eyelid inflammation, Other, Redness ENT: No: Ear pain, Ear discharge, Nose pain, Nose discharge, Nose congestion, Mouth pain, Mouth swelling, Throat pain, Throat swelling, Other Respiratory: Shortness of breath; No: Cough, Dry, SOB with excertion, Wheezing, Hemoptysis, Pleuritic Pain, Sputum, Wheezing, Other Cardiovascular: Chest Pain; No: Palpitations, Orthopnea, Paroxysmal Noc. Dyspnea, Edema, Lt Headedness, Other Gastrointestinal: No: Nausea, Vomiting, Abdominal Pain, Diarrhea, Constipation, Melena, Hematochezia, Other Genitourinary: No Dysuria, No Frequency, No Incontinence, No Hematuria, No Retention, No Other Musculoskeletal: No: other, neck pain, shoulder pain, arm pain, back pain, hand pain, leg pain, foot pain Skin: No: Rash, Lesions, Jaundice, Bruising, Other Neurological: No: Weakness, Numbness, Incoordination, Change in speech, Confusion, Seizures, Other Allergies: Coded Allergies: NO KNOWN ALLERGIES (Unverified , 12/04/23) Medications Current Medications Medications Dose Ordered Sig/Bettina Route Start Time Stop Time Status Last Admin Dose Admin Aspirin 81 mg DAILY PO 05/30/25 10:00 Sodium Chloride 10 ml Q8HR IV 05/30/25 06:00 Acetaminophen/ Hydrocodone Bitart 1 tab Q4HP PRN PO 05/30/25 05:00 Ondansetron HCl 4 mg Q4HP PRN IV 05/30/25 05:00 Docusate Sodium 100 mg BIDPRN PRN PO 05/30/25 05:00 Acetaminophen 650 mg Q6HP PRN PO 05/30/25 05:00 Exam Vital Signs Vital Signs Date Time Temp Pulse Resp B/P (MAP) Pulse Ox O2 Delivery O2 Flow Rate FiO2 05/30/25 01:51 81 05/29/25 23:36 98.6 18 115/65 (82) 98 98.6 General Appearance: Alert, Oriented X3, Cooperative, No acute distress HEENT: Atraumatic, PERRLA, EOMI, Mucous membr. moist/pink Respiratory: Clear to auscultation, Normal air movement Cardiovascular: Regular rate, Normal S1, Normal S2, No murmurs Abdominal: Normal bowel sounds, Soft, No tenderness, No hepatospenomegaly, No masses Extremities: No clubbing, No cyanosis, No edema, Normal pulses, No tenderness/swelling Skin: No rashes, No breakdown, No significant lesion Neuro: Normal gait, Normal speech, Strength at 5/5 X4 ext, Normal tone, Sensation intact, Cranial nerves 3-12 NL, Reflexes 2+ Psych/Mental Status: Mental status NL, Mood NL Labs/Xrays Labs Test 05/30/25 05:21 05/29/25 23:30 05/29/25 22:53 05/29/25 22:10 Range/Units Urine Color Light-yellow Yellow Urine Clarity Clear Clear Urine pH 6.5 5.0-9.0 Urine Specific [place] 1.004 1.001-1.035 Urine Protein Negative Negative Urine Ketones Negative Negative Urine Blood Negative Negative /uL Urine Nitrite Negative Negative Urine Bilirubin Negative Negative Urine Urobilinogen Normal Negative mg/dL Urine Leukocyte Esterase Negative Negative /uL Urine RBC <1 0 - 4 /hpf Urine Microscopic WBC < 1 0-5 /HPF Urine Squamous Epithelial Cells Few <5 /hpf Urine Bacteria None seen None Seen /hpf Urine Glucose Normal Normal mg/dL Troponin I High Sensitivity < 3 L </=34 ng/L Eosinophils (%) (Auto) 2.0 0.0-7.0 % Eosinophils # (Auto) 0.2 0-0.8 10 ^3/uL Basophils # (Auto) 0.1 0-0.2 10 ^3/uL Nucleated Red Blood Cells 0.1 % PATIENT: DARLING CAVAZOS ACCT: [id number] UNIT: [id number] : 1985 LOC: ER ROOM / BED: / AGE / SEX: 40 / F ADM STATUS: REG ER SERVICE 10 ORDERING PHYSICIAN: CLAUDIA BHANDARI MD PROCEDURE(s): CXRP - CHEST PORTABLE REASON: sob ORDER NUMBER(s): [id number], ACCESSION NUMBER(s): [id number] CHEST RADIOGRAPH Indication: sob Technique: 1 view Comparison: XY CHEST PORTABLE on DOS: 10/02/24 FINDINGS: Lines and Tubes: None Lungs/Pleura: No focal consolidation, pleural effusion or pneumothorax. Cardio-mediastinum: Unremarkable. Other: No acute osseous abnormality. IMPRESSION: 1. No acute cardiopulmonary abnormality. ] SEPSIS Sepsis Screen Date sepsis recognized/suspect: May 29, 2025 Time Sepsis recognized/suspect: 2338 Recent Procedure: No On Antibiotic Therapy: No Respiratory Rate >20: No Heart Rate >90: No Temp<36 C (96.8 F) or >38.3 C: No SBP <90 or MAP <65 mmHG: No New Acute Mental Status Change: No Is the patient on CPAP, BIPAP,: No Physician Orders Electrocardigram (05/29/25 22:49) Electrocardigram (05/29/25 23:49) Electrocardigram (05/30/25 01:49) Chest Portable (05/29/25 23:11) Blood Culture (05/29/25 23:34) Complete Blood Count (05/30/25 04:59) Comprehensive Metabolic Panel (05/30/25 04:59) Aspirin Tablet (05/30/25 10:00) Allergies (05/30/25 04:59) Code Status (05/30/25 04:59) Sodium Chloride Lock (Saline Lock Ns) (05/30/25 06:00) Oxygen Per Hour (05/30/25 04:59) Hydrocodone-Acet 5/325mg Tab ([place] (05/30/25 05:00) Ondansetron Hcl (Zofran) (05/30/25 05:00) Docusate Sodium Capsule (Colace Capsule) (05/30/25 05:00) Complete Blood Count (05/31/25 04:00) Comprehensive Metabolic Panel (05/31/25 04:00) Cardiac Diet-2gna,Lofat,Lochol (05/30/25 Breakfast) Condition: Serious (05/30/25 04:59) Acetaminophen Tablet (Tylenol Tablet) (05/30/25 05:00) Bedrest With Bathroom Privileg (05/30/25 04:59) Sequential Compression Device (05/30/25 ) Admit (05/30/25 05:32) Nitroglycerin Sublingual (Ntrostat Subli (05/30/25 05:45) Morphine Sulfate Injection (05/30/25 05:45) Stat Ekg For Chest Pain (05/30/25 05:32) Notify Md Of Changes From Base (05/30/25 05:32) American Indian Studies Professor For 24 Hours (05/30/25 05:32) Emergency Dysrhythmia Protocol (05/30/25 05:32) Rhythm Strips Once Every Shift (05/30/25 05:32) Oxygen By Nasal Cannula (05/30/25 05:32) Vital Signs Date Time Temp Pulse Resp B/P (MAP) Pulse Ox O2 Delivery O2 Flow Rate FiO2 05/30/25 01:51 81 05/29/25 23:36 98.6 85 18 115/65 (82) 98 98.6 05/29/25 23:36 85 18 05/29/25 23:23 89 05/29/25 22:12 89 05/29/25 22:02 98.5 87 18 122/69 96 98.5 Laboratory Tests Test 05/29/25 22:10 05/30/25 05:21 White Blood Count 9.1 10^3/uL (4.4-10.8) Pending Medications Medications Dose Ordered Sig/Bettina Route Start Time Stop Time Status Last Admin Dose Admin Azithromycin 250 ml @ 125 mls/hr ONCE ONCE IV 05/29/25 23:15 05/30/25 01:14 DC 05/30/25 01:22 125 MLS/HR Ceftriaxone Sodium 50 ml @ 100 mls/hr ONCE ONCE IV 05/29/25 23:15 05/29/25 23:44 DC 05/30/25 00:10 100 MLS/HR Methylprednisolone Sodium Succinate 125 mg ONCE ONCE IV 05/29/25 23:15 05/29/25 23:16 DC 05/30/25 00:10 125 MG Assessment/Plan Assessment/Plan Chest pain of unknown etiology Pneumonitis Plan 1. Admit to telemetry unit 2. Breathing treatment 3. Pain control management 4. Management of fluids and electrolytes 5. Consultation for hospitalist 6. Diagnostic tests chest x-ray 7. DVT prophylaxis on SCDs 8. Repeat labs CBC, CMP in a.m. 9. Continue with current medical management 10. Treatment plan discussed with patient and RN. Patient verbalized understanding. Plan discussed with: Patient, Other (RN) My Orders Orders - TERE ROCHE DNP Procedure Category Date Status Time Complete Blood Count LAB 05/30/25 In Process 04:59 Comprehensive LAB 05/30/25 In Process Metabolic Panel 04:59 Aspirin Tablet PHA 05/30/25 In Process 10:00 Allergies SERENA 05/30/25 In Process 04:59 Code Status CODE 05/30/25 Transmitted 04:59 Sodium Chloride Lock PHA 05/30/25 In Process (Saline Lock Ns) 06:00 Oxygen Per Hour RT 05/30/25 Transmitted 04:59 Hydrocodone-Acet PHA 05/30/25 In Process 5/325mg Tab ([place] 05:00 Ondansetron Hcl PHA 05/30/25 In Process (Zofran) 05:00 Docusate Sodium PHA 05/30/25 In Process Capsule (Colace 05:00 Complete Blood Count LAB 05/31/25 Verified 04:00 Comprehensive LAB 05/31/25 Verified Metabolic Panel 04:00 Cardiac DIET 05/30/25 Transmitted Diet-2gna,Lofat,Lochol Breakfast Condition: Serious SERENA 05/30/25 In Process 04:59 Acetaminophen Tablet PHA 05/30/25 In Process (Tylenol Tablet) 05:00 Bedrest With Bathroom SERENA 05/30/25 In Process Privileg 04:59 Sequential SERENA 05/30/25 In Process Compression Device Admit ADMIT 05/30/25 Verified 05:32 Nitroglycerin [facility] 05/30/25 Verified Sublingual (Ntrostat 05:45 Morphine Sulfate [facility] 05/30/25 Verified Injection 05:45 Stat Ekg For Chest [facility] 05/30/25 Verified Pain 05:32 Notify Md Of Changes [facility] 05/30/25 Verified From Base 05:32 American Indian Studies Professor For [facility] 05/30/25 Verified 24 Hours 05:32 Emergency Dysrhythmia [facility] 05/30/25 Verified Protocol 05:32 Rhythm Strips Once [facility] 05/30/25 Verified Every Shift 05:32 Oxygen By Nasal 05/30/25 Verified Cannula 05:32 Problem List: (1) Chest pain of unknown etiology (2) Pneumonitis Date of Service: May 30, 2025 Billing Provider: TERE ROCHE DNP Common Visit Codes: [id number] INP/OBS CARE (HIGH) TERE ROCHE DNP May 30, 2025 05:35
[2025-05-30 05:40] LABS: Hematocrit 36.0 % (36.0-46.0); Hemoglobin 12.1 g/dL (12.2-16.2); Mean Corpuscular Hemoglobin 31.1 pg (28.0-32.0); Mean Corpuscular Volume 92.2 fL (80.0-100.0); Nucleated Red Blood Cells % 0.0 %
[2025-05-30] MEDS: SODIUM CHLOR 0.9% PF (SALINE LOCK) 10ML VIAL/SYR IV SCH (05:44)
[2025-05-30] MEDS ORDERED: MORPHINE SULFATE INJ 2 MG/ml SYRG IV PRN (05:45)
[2025-05-30] MEDS ORDERED: NITROGLYCERIN 0.4 MG SL TAB SL PRN (05:45)
[2025-05-30 06:04] LABS: Alanine Aminotransferase 26 U/L (7-40); Albumin 4.4 g/dL (3.2-4.8); Alkaline Phosphatase 68 U/L (46-116); Anion Gap 11 (5-15); BUN/Creatinine Ratio 9.7 (10.0-20.0); Calcium 9.0 mg/dL (8.7-10.4); Carbon Dioxide 29 mmol/L (20-31); Chloride 104 mmol/L (98-107); Potassium 3.9 mmol/L (3.5-5.1); Sodium 144 mmol/L (136-145); Total Protein 6.9 g/dL (5.7-8.2)
[2025-05-30 06:05] LABS: Blood Urea Nitrogen 6 mg/dL (9-23); Glucose 141 mg/dL (74-106)
[2025-05-30 06:11] LABS: Bilirubin, Total 0.2 mg/dL (0.2-1.0)
--- NOTE | 2025-05-30 06:49 | ECG ---
[facility] Test Date: 2025-05-29 Test Time: 22:12:14 Pat Name: DARLING CAVAZOS Department: [facility] ED Room: [address] [place] [address] Gender: F Cafe Aide: PRINCESS : 1985 Requested By: CLAUDIA BHANDARI Order Number: [id number] Reading MD: Measurements Intervals [place] Rate: 89 P: 64 RI: 135 QRS: 72 QRSD: 81 T: 72 QT: 355 QTc: 432 Interpretive Statements Sinus rhythm Please click the below link to view image of tracing.
--- NOTE | 2025-05-30 06:50 | ECG ---
[facility] Test Date: 2025-05-30 Test Time: 01:51:06 Pat Name: DARLING CAVAZOS Department: [facility] ED Patient ID: [id number] Room: [address] [place] [address] Gender: F Machine Maintenance Servicer: : 1985 Requested By: CLAUDIA BHANDARI Order Number: [id number] Reading MD: Measurements Intervals [place] Rate: 81 P: 46 VA: 141 QRS: 51 QRSD: 83 T: 49 QT: 363 QTc: 422 Interpretive Statements Sinus rhythm Please click the below link to view image of tracing.
[2025-05-30 07:10] VITALS: BP 110/74; PULSE 93; RESP 14; TEMP 98.3; O2SAT 96
== END 2025-05-30 07:31 | disposition left against medical advice (07) | DRG 144 ==
LOC: ER 22:01 → OVERFLOW 05-30 05:32
PROVIDERS: ADMIT Nurse Practitioner Family; ATTEND Nurse Practitioner Family
DX: J98.4 Other disorders of lung (principal); J45.909 Unspecified asthma, uncomplicated; Z53.29 Procedure and treatment not carried out because of patient's decision for other reasons; R07.89 Other chest pain
CPT/HCPCS: 36415; 80048; 80053; 81001; 84484; 85025; 87040; 93005; 96374; 96375; 99291; 99292; G0378

== ENCOUNTER 2025-06-15 17:38 | Emergency (ER) | payer MEDICAID ==
[~2025-06-15] VITALS: Ht 149.9 cm; Wt 63.5 kg
[2025-06-15] MEDS: HYDROcodone-ACET 5/325MG TAB PO ONE (20:48)
[2025-06-15] MEDS ORDERED: METH4PAK PO (21:16)
[2025-06-15] MEDS ORDERED: IBUP-1456 PO (21:16)
--- NOTE | 2025-06-15 21:16 | ED.PDOC ---
Musculoskeletal HPI Comments 40-year-old female presents to ER complaints of left leg pain x2 weeks. Patient with past medical history significant for left-sided sciatica reports that she has been experiencing left leg pain x2 weeks. States she has had similar pain in the past related to a "sciatic flare-up" and rates her current pain an 8/10 localized to left leg with radiation towards her left lower lumbar region. Notes she has been taking Tylenol for her pain without relief and presents to ER ambulatory on arrival, with steady gait, in no distress. Patient also endorses "chronic" numbness/tingling to left leg. Denies fever, body aches, chills, night sweats, falls, extremity weakness or any further symptoms/complaints Chief Complaint: Lower Extremity Time Seen by MD: 18:18 Primary Care Provider: [facility] Reviewed Notes: Nurses Notes, Medications, Allergies Allergies: Coded Allergies: NO KNOWN ALLERGIES (Unverified , 12/04/23) Home Meds Active Scripts Ibuprofen (Ibuprofen) 800 Mg Tab, 1 TAB PO TID PRN, #30 TAB 0 Refills Prov:DIAZ TABARES 06/15/25 Methylprednisolone (Medrol Dosepak) 4 Mg Arnoldo, 4 MG PO UD, #21 TAB UAD Prov:DIAZ TABARES 06/15/25 Ibuprofen Micronized (Ibuprofen) 600 Mg Tab, 600 MG PO TIDWMEALS for 10 Days, #30 TAB 0 Refills Prov:MIKKI SÁNCEHZ FORMING PRESS OPERATOR 02/23/25 Azithromycin (ZITHROMAX TABLET) 250 Mg Tb, 250 MG PO DAILY, #6 TAB Prov:ALANA VORA 10/02/24 Promethazine-Dm (Promethazine Dm 6.25-15 mg/5Ml) 1 Rachael Rachael, 5 ML PO TID, #160 ML Prov:ALANA VORA 10/02/24 Methylprednisolone (Medrol Dosepak) 4 Mg Arnoldo, 4 MG PO UD, #21 TAB UAD Prov:ALANA VORA 10/02/24 Prednisone (Prednisone) 20 Mg Tab, 40 MG PO DAILY@BREAKFAST for 4 Days, #8 MG Prov:EFRAIN JORGENSENP 07/12/24 Amoxicillin & Pot Clavulanate (AUGMENTIN TABLET) 875 Mg Tb, 875 MG PO BID for 10 Days, #20 TAB Prov:EFRAIN JORGENSEN [facility] 07/12/24 Azithromycin (Azithromycin) 250 Mg Tab, 250 MG PO DAILY MDD 500 for 5 Days, #6 TAB 0 Refills 2 TABLETS ORALLY ON DAY ONE, THEN 1 TABLET ORALLY DAILY FOR 4 DAYS Prov:PRINCESS TAPIA [facility] 12/04/23 Azelastine HCl (Azelastine Hydrochloride) 0.15 % Spr, 0.15 % NA DAILY for 7 Days, #1 SPRAY Prov:PRINCESS TAPIA [facility] 12/04/23 Prednisone (Prednisone) 20 Mg Tab, 40 MG PO DAILY for 5 Days, #10 TAB Prov:PRINCESS TAPIA [facility] 12/04/23 Information Source: Patient Mode of Arrival: Ambulatory Past Medical History PAST MEDICAL HISTORY: Asthma, Thyroid Past Medical History (Other): Left-sided sciatica Surgical History: CONTACT ASSEMBLER History: No Pertinent CONTACT ASSEMBLER History Family History Family History: Unknown Social History Smoker: Non-Smoker Alcohol: Denies ETOH Use Drugs: Denies Drug Use Lives In: Home Constitutional: denies: chills, diaphoresis, fatigue, fever, malaise, sweats, weakness, others EENTM: denies: blurred vision, double vision, ear bleeding, ear discharge, ear drainage, ear pain, ear ringing, eye pain, eye redness, hearing loss, mouth pain, mouth swelling, nasal discharge, nose bleeding, nose congestion, nose pain, photophobia, tearing, throat pain, throat swelling, voice changes, others Respiratory: denies: cough, hemoptysis, orthopnea, SOB at rest, shortness of breath, SOB with excertion, stridor, wheezing, others Cardiovascular: denies: chest pain, dizzy spells, diaphoresis, Dyspnea on exertion, edema, irregular heart beat, left arm pain, lightheadedness, palpitations, PND, syncope, others Gastrointestinal: denies: abdomen distended, abdominal pain, blood streaked bowels, constipated, diarrhea, dysphagia, difficulty swallowing, hematemesis, melena, nausea, poor appetite, poor fluid intake, rectal bleeding, rectal pain, vomiting, others Genitourinary: denies: abnormal vagina bleeding, burning, dyspareunia, dysuria, flank pain, frequency, hematuria, incontinence, pain, , vagina discharge, urgency, others Neurological: denies: dizziness, fainting, headache, left sided numbness, left sided weakness, numbness, paresthesia, pre-existing deficit, right sided numbness, right sided weakness, seizure, speech problems, tingling, tremors, weakness, others Musculoskeletal: reports: others (As stated in HPI) Integumetry: denies: bruises, change in color, change in hair/nails, dryness, laceration, lesions, lumps, rash, wounds, others Allergic/Immunocompromised: denies: Difficulty Healing, Frequent Infections, Hives, Itching, others Hematologic/Lymphatic: denies: anemia, blood clots, easy bleeding, easy bruising, swollen glands, others Endocrine: denies: excessive hunger, excessive sweating, excessive thirst, excessive urination, flushing, intolerance to cold, intolerance to heat, unexplained weight gain, unexplained weight loss, others Psychiatric: denies: anxiety, bipolar disorder, depression, hopeless, panic disorder, schizophrenia, sleepless, suicidal, others Physical Exam General Appearance: No Apparent Distress HEENT: PERRL/EOMI Neck: Full Range of Motion, Non-Tender, Normal Respiratory: Chest Non-Tender, Lungs Clear, No Accessory Muscle Use, No Respiratory Distress, Normal Breath Sounds Cardiovascular: No Murmur, No Gallop, Regular Rate/Rhythm Breast Exam: Deferred Gastrointestinal: Non Tender, No Pulsatile Mass, Soft Genitalia: Deferred Pelvic: Deferred Rectal: Deferred Extremities: No calf tenderness, Normal capillary refill, Normal range of motion Musculoskeletal : Extremity Location: Back (No TTP to lumbar/thoracic spine appreciated), Leg (TTP centralized to left buttock and to left posterior thigh. Steady gait appreciated) Neurologic: Alert, No Motor Deficits, Normal Affect, Normal Mood, No Sensory Deficits Cerebellar Function: Normal Reflexes: Normal Skin: Dry, Normal Color, Warm Peripheral Pulses: 2+ femoral (R), 2+ femoral (L), 2+ dorsalis pedis (R), 2+ dorsalis pedis (L), 2+ Radial (R), 2+ Radial (L), 2+ Brachial (R), 2+ Brachial (L) Lymphatic: No Adenopathy Was a procedure done? Was a procedure done?: No Sedation Sedation?: No Differential Diagnosis EXT Differential Diagnosis: Deep Vein Thrombosis, Fracture, Neurovascular injury X-Ray, Labs, Meds, VS Vital Signs Date Time Temp Pulse Resp B/P (MAP) Pulse Ox O2 Delivery O2 Flow Rate FiO2 06/15/25 17:39 98.5 95 16 124/85 97 98.5 Current Medications Medications (Trade) Dose Ordered Sig/Bettina Route Start Time Stop Time Status Last Admin Acetaminophen/ Hydrocodone Bitart ([place] 5/325MG Tab) 1 tab ONCE ONCE PO 06/15/25 20:45 06/15/25 20:46 DC 06/15/25 20:48 [place] 5/325 mg p.o. ordered Solu-Medrol 125 mg IM ordered Patient had improvement in symptoms and in no distress prior to discharge Advised to follow up with PCP in 1-2 days Patient verbalized understanding agreeable with current plan of care Advised to return to ER immediately if symptoms worsen Time of 1ST Reevaluation: 20:54 Reevaluation 1ST: N/A Patient Education/Counseling: Diagnosis, Treatment, Prognosis, Need For Follow Up Family Education/Counseling: No Family Present Departure 1 Departure Time of Disposition: 21:12 Impression: Primary Impression: Sciatica, left side Disposition: 01 HOME / SELF CARE / HOMELESS Condition: Stable e-Prescriptions Ibuprofen (Ibuprofen) 800 Mg Tab 1 TAB PO TID PRN, #30 TAB 0 Refills Prov: DIAZ TABARES 06/15/25 Methylprednisolone (Medrol Dosepak) 4 Mg Arnoldo 4 MG PO UD, #21 TAB UAD Prov: DIAZ TABARES 06/15/25 Discharged With: Self Critical Care Note Critical Care Time?: No Stability Stability form required: No Heart Score Heart Score: Heart Score Response (Comments) Value History N/A 0 EKG N/A 0 Age N/A 0 Risk Factors N/A 0 Troponin N/A 0 Total 0 DIAZ TABARES Jun 15, 2025 21:16
[2025-06-15 21:17] VITALS: BP 124/85; PULSE 95; RESP 16; TEMP 98.5; O2SAT 97
[2025-06-15] MEDS: methylPREDNISolone SOD SUCC 125 MG/2 ML VL IM ONE (21:31)
== END 2025-06-15 21:33 | disposition home or self-care (01) ==
LOC: ER 17:39
DX: M54.32 Sciatica, left side (principal); J45.909 Unspecified asthma, uncomplicated
CPT/HCPCS: 96372; 99283; J2919